=== PATIENT | female | born 1950 | race Caucasian/White ===

== ENCOUNTER 2020-10-22 09:59 | Outpatient (CLI) | payer MEDICARE, SELFPAY ==
--- NOTE | 2020-10-22 11:30 | NEURO_ITS ---
Impression: # Complains of pain and numbness of right hand. # Bilateral Carpal Tunnel Syndrome, right more than left. # No ulnar neuropathy. # Needle/EMG exam is abnormal in right APB. Nerve Conduction Studies Anti Sensory Summary Table Stim Site NR Peak (ms) P-T Amp (?V) Site1 Site2 Delta-P (ms) Dist (cm) Julio (m/s) Left Median Anti Sensory (2-3nd Digit) Wrist 4.2 21.0 Wrist 2-3nd Digit 4.2 14.0 33 Wrist 4.0 31.7 Wrist 2-3nd Digit 4.2 14.0 33 Right Median Anti Sensory (2-3nd Digit) Wrist 5.5 5.4 Wrist 2-3nd Digit 5.5 14.0 25 Wrist 6.8 16.5 Wrist 2-3nd Digit 5.5 14.0 25 Left Radial Anti Sensory (Base 1st Digit) Wrist 1.9 15.5 Wrist Base 1st Digit 1.9 0.0 Right Radial Anti Sensory (Base 1st Digit) Wrist 2.6 24.4 Wrist Base 1st Digit 2.6 0.0 Left Ulnar Anti Sensory (5th Digit) Wrist 2.6 42.1 Wrist 5th Digit 2.6 14.0 54 Right Ulnar Anti Sensory (5th Digit) Wrist 2.8 55.2 Wrist 5th Digit 2.8 14.0 50 Motor Summary Table Stim Site NR Onset (ms) O-P Amp (mV) Site1 Site2 Delta-0 (ms) Dist (cm) Julio (m/s) Left Median Motor (Abd Poll Brev) Wrist 4.2 4.7 Elbow Wrist 4.5 26.0 58 Elbow 8.7 4.1 Right Median Motor (Abd Poll Brev) Wrist 4.1 1.3 Elbow Wrist 4.5 26.0 58 Elbow 8.6 0.3 Left Ulnar Motor (Abd Dig Minimi) Wrist 2.5 4.8 A Elbow Wrist 5.1 29.0 57 A Elbow 7.6 4.7 Right Ulnar Motor (Abd Dig Minimi) Wrist 2.5 4.8 A Elbow Wrist 4.8 27.0 56 A Elbow 7.3 3.7 F Wave Studies NR F-Lat (ms) L-R F-Lat (ms) Left Median (Mrkrs) (Abd Poll Brev) 27.73 0.76 Right Median (Mrkrs) (Abd Poll Brev) 28.49 0.76 Left Ulnar (Mrkrs) (Abd Dig Min) 28.52 0.08 Right Ulnar (Mrkrs) (Abd Dig Min) 28.44 0.08 EMG Side Muscle Nerve Root Ins Act Fibs Amp Dur Recrt Comment Right 1stDorInt Ulnar C8-T1 Nml Nml Nml Nml Nml Right Ext Indicis Radial (Post Int) C7-8 Nml Nml Nml Nml Nml Right Ext Digitorum Radial (Post Int) C7-8 Nml Nml Nml Nml Nml Right BrachioRad Radial C5-6 Nml Nml Nml Nml Nml Right PronatorTeres Median C6-7 Nml Nml Nml Nml Nml Right Abd Poll Brev Median C8-T1 Nml Nml Decr >12ms Reduced Left 1stDorInt Ulnar C8-T1 Nml Nml Nml Nml Nml Left Ext Indicis Radial (Post Int) C7-8 Nml Nml Nml Nml Nml Left Ext Digitorum Radial (Post Int) C7-8 Nml Nml Nml Nml Nml Left BrachioRad Radial C5-6 Nml Nml Nml Nml Nml Left PronatorTeres Median C6-7 Nml Nml Nml Nml Nml Left Abd Poll Brev Median C8-T1 Nml Nml Nml Nml Nml Right ABD Dig Min Ulnar C8-T1 Nml Nml Nml Nml Nml Right Anconeus Radial C7-8 Nml Nml Nml Nml Nml Right Brachialis Musculocut C5-6 Nml Nml Nml Nml Nml Left ABD Dig Min Ulnar C8-T1 Nml Nml Nml Nml Nml Left Anconeus Radial C7-8 Nml Nml Nml Nml Nml Left Brachialis Musculocut C5-6 Nml Nml Nml Nml Nml MTDD
== END 2020-10-22 10:00 | disposition home or self-care (01) ==
PROVIDERS: PCP Physician Assistant; Visit Provider Physician Assistant
DX: G56.03 Carpal tunnel syndrome, bilateral upper limbs (principal)
CPT/HCPCS: 95886; 95911

== ENCOUNTER 2021-03-17 10:23 | Outpatient (CLI) | payer MEDICARE, SELFPAY ==
--- NOTE | ~2021-03-17 | US_ITS ---
EXAMINATION: US venous doppler LE RT DATE: 03/17/2021 11:01 INDICATION: Right lower limb pain. TECHNIQUE: Grayscale ultrasound images without and with compression and Doppler ultrasound images of the right lower extremity veins were obtained. COMPARISON: None. FINDINGS: The visualized portions of right common femoral vein, profunda (deep) femoral vein, femoral vein, pop liteal vein, peroneal trunk, posterior tibial veins, peroneal veins, gastrocnemius vein and greater s aphenous vein outflow are patent. 2.4 x 1.1 x 1.0 cm Joel cyst at the medial popliteal fossa. IMPRESSION: 1. No deep venous thrombosis in the right lower limb. 2. Small Joel's cyst. Reviewed, dictated and finalized at location A.
== END 2021-03-17 10:24 | disposition home or self-care (01) ==
PROVIDERS: PCP Physician Assistant; Visit Provider Physician Assistant
DX: M79.604 Pain in right leg (principal); M71.21 Synovial cyst of popliteal space [Baker], right knee
CPT/HCPCS: 93971

== ENCOUNTER 2021-12-29 08:07 | Outpatient (CLI) | payer MEDICARE, SELFPAY ==
--- NOTE | ~2021-12-29 | US_ITS ---
EXAMINATION: US arterial ankle brachial ind DATE: 12/29/2021 08:50 INDICATION: Right lower limb pain TECHNIQUE: Segmental pressures and plethysmographic and Doppler waveforms of the brachial and lower e xtremity arteries were obtained. COMPARISON: None. FINDINGS: Right and left brachial artery pressures of 135 mm Hg and 134 mm Hg, respectively, are concordant (no rmal difference <= 30 mmHg). The right ankle-brachial index (JOHN) is 1.44 (normal >= 0.9-1.0). The right great toe-brachial index (TBI) is 1.01 (normal >= 0.65). Arterial Doppler waveforms are biphasic with brisk systolic upstrokes at the right posterior tibial and dorsalis pedis arteries. The left JOHN is 1.44. The left TBI is 1.04. Arterial Doppler waveforms are biphasic with brisk systol ic upstrokes at both the left posterior tibial and dorsalis pedis arteries. IMPRESSION: 1. No significant arterial occlusive disease to either lower limb with normal bilateral ABIs and TBI' s. Reviewed, dictated and finalized at location A. MAN IMPRESSION: 1. No significant arterial occlusive disease to either lower limb with normal b ilateral ABIs and TBI's.
== END 2021-12-29 08:08 | disposition home or self-care (01) ==
LOC: ANHIMG 08:12
PROVIDERS: PCP Physician Assistant; Visit Provider Physician Assistant
DX: M79.604 Pain in right leg (principal); M79.605 Pain in left leg; M79.89 Other specified soft tissue disorders
CPT/HCPCS: 93922

== ENCOUNTER 2022-12-08 12:49 | Emergency (ER) | payer MEDICARE, SELFPAY ==
[2022-12-08] VITALS (21 sets, daily range): BP systolic 103–172; BP diastolic 69–94; PULSE 68–105; RESP 12–20; TEMP 36.3; O2SAT 92–98
--- NOTE | ~2022-12-08 | CT_ITS ---
EXAMINATION: CT abdomen pelvis w con DATE: 12/08/2022 14:37 INDICATION: Abdomen pain. TECHNIQUE: Computed tomography (CT) of the abdomen and pelvis was performed with 100 cc Omnipaque 350 intravenous contrast. The dose-length product was 852.04 mGy-cm. Automated exposure control and iter ative reconstruction technique were employed. COMPARISON: None. FINDINGS: There is dependent atelectasis. Heart size normal. No significant pleural or pericardial ef fusion. The liver, spleen, pancreas, adrenal glands and kidneys are unremarkable. There are gallstones. No hy dronephrosis. Nonobstructive bowel pattern. There is a simple left adnexal cyst measuring 6.6 x 6.5 x 6 cm. No free fluid or free air. No significant vascular abnormality. Severe lumbar spondylosis with grade 2 spondylolisthesis at L4-5. Severe osteoarthritis of the right hip. IMPRESSION: 1. Left adnexal cyst measuring up to 6.6 cm, likely ovarian. Differential diagnosis includes simple o varian cyst, cystadenoma and cystadenocarcinoma. Recommend correlation with MRI with contrast. 2: Cholelithiasis. Reviewed, dictated and finalized at location A. INE BOOKKEEPER IMPRESSION: 1. Left adnexal cyst measuring up to 6.6 cm, likely ovarian. Differential diagn osis includes simple ovarian cyst, cystadenoma and cystadenocarcinoma. Recommen d correlation with MRI with contrast. 2: Cholelithiasis.
--- NOTE | 2022-12-08 13:27 | ED.ABDPAIN ---
HPI - Abdominal Pain General Chief Complaint: Abdominal Pain Stated Complaint: N/V, abd pain Time Seen by Provider: 12/08/22 13:05 Source: patient, family and RN notes reviewed History of Present Illness HPI narrative: Patient presents emergency department from home for nausea vomiting diarrhea. Patient states the symptoms began last night states she has had numerous episodes of nausea and vomiting as well as diarrhea. She states she has been unable to keep anything down patient states has been associated with abdominal pain described as diffuse and aching in nature. She denies any fevers or chills she denies any chest pain shortness of breath coughing or any other symptoms Related Data Allergies Allergy/AdvReac Type Severity Reaction Status Date / Time No Known Allergies Allergy Verified 10/06/20 11:06 Review of Systems Review of Systems: Gen.: Denies fevers or chills ENT: Denies congestion Respiratory: Denies shortness of breath or cough CV: Denies chest pain or palpitations GI: See HPI Musculoskeletal: Denies back pain or muscle pain Neuro: Denies numbness, tingling, weakness or focal weakness Skin: Denies rash Except as documented, all other systems reviewed and negative [facility] Past Medical History Medical History Arthritis Inflammatory arthritis Knowledge deficit on leg surgery Surgical History Surgical History H/O brain surgery H/O skin graft History of hip surgery History of surgery on arm Social History Social History Smoking status: Never smoker Alcohol intake: current Substance use: never Exam Narrative: APPEARANCE: No acute distress, nontoxic, resting in bed HEENT: Normocephalic, atraumatic, OMM RESPIRATORY: No respiratory distress, clear to auscultation bilaterally with no rhonchi wheezing or rales CARDIOVASCULAR: RRR s murmur ABDOMINAL: Soft nondistended diffusely tender to palpation no rebound or guard MUSCULOSKELETAl: Moves all extremities. No clubbing, cyanosis or edema. NEURO: Awake and alert. Following commands, speech normal, no focal deficits SKIN:: Warm, dry. Normal Color PSYCHIATRIC: Normal affect/mood Course Course Emergency Course: Called and discussed with ARNOLD Borges patient CT results. Discussed need for follow-up MRI will follow as an outpatient Patient able to eat and drink in ED with no emesis Patient states that they are feeling much better at this time. States abdominal pain has resolved. Repeat abdominal exam shows the patient's abdomen to be soft and nontender. Discussed with patient results of workup and diagnosis. Discussed need for follow-up with primary care physician, reasons to return to the emergency department in proper use of medication. Patient understands and agrees to current treatment plan I discussed with patient her CT scan showing ovarian cyst and need for outpatient imaging for further evaluation to rule out mass Vital Signs Vital signs: Vital Signs Temperature 97.4 F L 12/08/22 13:01 Pulse Rate 101 H 12/08/22 13:01 Respiratory Rate 18 12/08/22 13:01 Blood Pressure 103/78 12/08/22 13:01 Pulse Oximetry 96 12/08/22 13:01 Oxygen Delivery Room Air 12/08/22 13:01 Temperature 97.4 F L 12/08/22 13:01 Pulse Rate 76 12/08/22 16:16 Respiratory Rate 17 12/08/22 16:16 Blood Pressure 146/74 H 12/08/22 16:16 Pulse Oximetry 98 12/08/22 16:16 Oxygen Delivery Room Air 12/08/22 13:01 MDM - Abdominal Pain MDM Narrative Medical decision making narrative: Patient's abdomen is soft without significant pain or signs of surgical abdomen on serial exams. Lab and x-ray evaluations are reviewed and patient is felt to be a reasonable candidate for outpatient management. Patient was instructed as to limitations of x-ray and laboratory evaluation and encouraged to retur
[2022-12-08] MEDS: SODIUM CHLORIDE 0.9% IV 1,000 ML 999 ML IV CONT (13:35)
[2022-12-08] MEDS: FAMOTIDINE 20 MG/2 ML VIAL IV PUSH (13:36)
[2022-12-08] MEDS: ONDANSETRON INJ 4 MG/2 ML VIAL IV PUSH (13:36)
[2022-12-08 13:49] LABS: Basophils Percent Auto 0.2 % (0.2-1.2); Eosinophils Percent Auto 0.1 % (0-4.4); Hematocrit 45.9 % (37.0-47.0); Hemoglobin 14.6 g/dL (12.0-15.0); Immature Granulocyte Absolute 0.03 K/mm3 (0.00-0.031); Immature Granulocyte Percent A 0.3 % (0-0.5); Lymphocytes Absolute Auto 0.25 K/mm3 (0.9-3.2); Lymphocytes Percent Auto 2.6 % (18.3-44.2); Mean Corpuscular HGB Conc 31.8 g/dl (32-36); Mean Corpuscular Volume 94.3 fl (80-100); Mean Platelet Volume 9.6 fl (7.4-10.4); Monocytes Absolute Auto 0.3 K/mm3 (0.1-0.6); Neutrophils Absolute Auto 9.2 K/mm3 (1.3-6.7); Neutrophils Percent Auto 93.8 % (45.5-73.1); Platelet Count Result 304 k/mm3 (150-375); Red Blood Count 4.87 M/mm3 (4.2-5.4); Red Cell Distribution Width 13.2 % (11.5-14.5); White Blood Count 9.8 K/mm3 (4.5-10.0)
[2022-12-08 14:01] LABS: Alanine Aminotransferase 19 U/L (6-35); Albumin Level 4.4 g/dL (3.5-5.1); Alkaline Phosphatase 64 U/L (38-126); Anion Gap 8 mmol/L (8-16); Aspartate Amino Transferase 24 U/L (14-36); Bilirubin,Total 0.9 mg/dL (0.2-1.3); Blood Urea Nitrogen 39 mg/dL (7-17); Calcium 9.1 mg/dL (8.4-10.2); Carbon Dioxide 23 mmol/L (22-30); Chloride 110 mmol/L (98-107); Estimated CRCL calculation 59 ml/min; Estimated Glomerular Filt Rate > 60; Glucose 138 mg/dL (65-110); Lipase 92 U/L (23-300); Potassium 3.9 mmol/L (3.4-5.0); Sodium 141 mmol/L (137-145)
[2022-12-08 14:59] LABS: Influenza A QL RT-PCR Negative (Negative); Influenza B QL RT-PCR Negative (Negative); SARS-CoV-2 RNA PCR Negative
[2022-12-08 15:50] LABS: Appearance Urine Clear (Clear); Bilirubin Urine Negative (Negative); Blood Urine Negative (Negative); Color Urine Yellow (Yellow); Glucose Urine UA Negative (Negative); Ketones Urine Negative (Negative); Leukocyte Esterase Ur Negative LEU/UL (Negative); Nitrate Urine Negative (Negative); Protein Urine Trace mg/dL (Negative); Specific Grav Ur <= 1.005 (1.001-1.035); Urobilinogen Urine 0.2 mg/dL (<2.0); pH Urine 5.5 (5.0-9.0)
[2022-12-08 15:56] LABS: Bacteria Urine Trace /hpf; Mucus Urine Moderate /lpf; Squamous Epithelial Cell Urine Rare /hpf (Few); WBC Urine 0-3 /hpf
[2022-12-08 16:33] LABS: Add Urine Microscopic? YES
== END 2022-12-08 16:52 | disposition home or self-care (01) ==
PROVIDERS: Emergency Provider Emergency Medicine; PCP Physician Assistant
DX: R11.2 Nausea with vomiting, unspecified (principal); N83.202 Unspecified ovarian cyst, left side; Z20.822 Contact with and (suspected) exposure to COVID-19; M19.90 Unspecified osteoarthritis, unspecified site; K80.20 Calculus of gallbladder without cholecystitis without obstruction
CPT/HCPCS: 36415; 74177; 80053; 81001; 83690; 85025; 87636; 96361; 96365; 96375; 99284; J0131; J2405; J7030; Q9967

== ENCOUNTER 2024-02-02 10:48 | Outpatient (CLI) | payer MEDICARE, SELFPAY ==
--- NOTE | ~2024-02-02 | CT_ITS ---
Noncontrast CT scan of the pelvis and right hip CLINICAL HISTORY: History of fracture TECHNIQUE: Axial noncontrast imaging of the pelvis and right hip was performed. Sagittal and coronal reformatted images were constructed. Dose reduction technique was used on this scan by utilizing auto mated exposure control and iterative reconstruction technique. The dose-length product (DLP) was 520. 57 mGy-cm. Findings: No acute fracture or dislocation seen. There is severe osteoarthritis of the right hip join t. There is remodeling and irregularity of the articular surface of the femoral head with severe join t space narrowing, [id number] appearance, with reactive sclerotic and subchondral cystic change. Th ere is osteophyte formation at the femoral head neck junctions. There is minimal degenerative change of the left hip joint. SI joints appear intact. Calcified gallstone incidentally noted. Visualized bowel loops are unremarkable. No ascites. Urinary bladder unremarkable. There is a 6.9 x 4.8 cm probable left ovarian cyst. No ascites. No lymphadenopa thy evident. No joint effusion evident. IMPRESSION: No acute fracture or dislocation. Severe osteoarthritis of the right hip joint, as detailed above. 6.9 x 4.8 cm left ovarian/left adnexal cyst, stable since 12/08/2022. Cholelithiasis. Reviewed, dictated and finalized at location . IMPRESSION: No acute fracture or dislocation. Severe osteoarthritis of the right hip joint, as detailed above. 6.9 x 4.8 cm left ovarian/left adnexal cyst, stable since 12/08/2022. Cholelithiasis.
== END 2024-02-02 10:49 | disposition home or self-care (01) ==
LOC: ANHIMG 10:50
PROVIDERS: PCP Physician Assistant; Visit Provider Physician Assistant
DX: Z87.81 Personal history of (healed) traumatic fracture (principal)
CPT/HCPCS: 72192; 73700

== ENCOUNTER 2024-02-20 08:45 | Outpatient (CLI) | payer MEDICARE, SELFPAY ==
--- NOTE | 2024-02-20 | EST_ITS ---
Patient Info Name: Cindy Meade Age: 73 years : 1950 Gender: Female Ht: 62 in Wt: 140 lbs BSA: 1.68 m2 HR: 58 bpm BP: 161 / 105 mmHg Heart Rhythm: Sinus Rhythm Exam Date: 02/20/2024 10:20 AM Exam Location: Echo Lab Patient Status: Outpatient Admit Date: 02/20/2024 Staff Ordering Physician: Wellington, Sylwia ANDERSON Attending Provider: Wellington, Sylwia ANDERSON Exercise Technologist: Nessa Dempsey, CT Nurse: Lety Sales APN Exam Type: CA stress ciarra w NM Study Info Indications R07.89 - Other chest pain A regadenoson stress test was performed. Summary 1. No abnormal ST/T wave changes diagnostic of ischemia with Lexiscan. 2. Please correlate with nuclear medicine images, reported separately. 3. Stress test supervised by Lety Sales NP. Stress test interpreted by Deanne Way MD. Protocol: Lexiscan Stress ECG Details Stage: REST Duration (min): 1 min : 43 sec HR (bpm): 58 SBP (mmHg): 142 DBP (mmHg): 85 Stage: REST Duration (min): 2 min : 2 sec HR (bpm): 57 SBP (mmHg): 142 DBP (mmHg): 85 Stage: REST Duration (min): 6 min : 58 sec HR (bpm): 65 SBP (mmHg): 142 DBP (mmHg): 85 Stage: STAGE 1 Duration (min): 1 min : 0 sec HR (bpm): 85 SBP (mmHg): 161 DBP (mmHg): 105 Stage: RECOVERY Duration (min): 1 min : 0 sec HR (bpm): 84 SBP (mmHg): 161 DBP (mmHg): 105 Stage: RECOVERY Duration (min): 2 min : 0 sec HR (bpm): 82 SBP (mmHg): 161 DBP (mmHg): 105 Stage: RECOVERY Duration (min): 3 min : 0 sec HR (bpm): 75 SBP (mmHg): 161 DBP (mmHg): 105 Stage: RECOVERY Duration (min): 3 min : 24 sec HR (bpm): 77 SBP (mmHg): 170 DBP (mmHg): 99 Rest HR: 65 bpm Peak HR: 93 bpm Rest Sys BP: 142 mmHg Peak Sys BP: 170 mmHg Max Pred HR: 149 bpm % Max Pred HR: 62 % Target HR: 127 bpm Max RPP: 15,810 bpm*mmHg Total Time: 1 min : 0 sec Rest Shaffer BP: 85 mmHg Peak Shaffer BP: 99 mmHg Total Dose: 0.4 mg Resting ECG Sinus bradycardia. Stress ECG Sinus rhythm. No abnormal ST/T wave changes diagnostic of ischemia with Lexiscan. Arrhythmias None. Report Signatures
--- NOTE | ~2024-02-20 | NM_ITS ---
EXAMINATION: NM ciarra stress w perfusion DATE: 02/20/2024 11:29 INDICATION: Chest pain TECHNIQUE: Rest images were obtained following intravenous administration of 9.9 mCi Tc99m tetrofosmi n (Myoview). The patient was infused intravenously with Lexiscan (Regadenoson). Then, 31.1 mCi Tc99m tetrofosmin (Myoview) was administered intravenously, and stress images were obtained. Data was recon structed into short axis and horizontal and vertical long axis SPECT images. Gated SPECT images were also obtained. COMPARISON: None. FINDINGS: There is no definite reversible or fixed perfusion abnormality to suggest ischemia or infar ction. There is normal left ventricular chamber size, wall motion and ejection fraction. Left ventr icular ejection fraction measures >70%. IMPRESSION: 1. Normal myocardial perfusion at rest and during stress. 2. Left ventricular ejection fraction measuring >70%. Reviewed, dictated and finalized at location B.
== END 2024-02-20 08:46 | disposition home or self-care (01) ==
PROVIDERS: PCP Physician Assistant; Visit Provider Physician Assistant
DX: R07.9 Chest pain, unspecified (principal)
CPT/HCPCS: 78452; 93017; A9502; J2785

== ENCOUNTER 2024-03-20 10:15 | Outpatient (CLI) | payer MEDICARE, SELFPAY ==
--- NOTE | ~2024-03-20 | US_ITS ---
EXAMINATION: US pelvic complete DATE: 03/20/2024 10:53 INDICATION: Unspecified ovarian cyst, left side. TECHNIQUE: Multiple transabdominal sonographic images of the pelvis were obtained. COMPARISON: Pelvis CT 02/02/2024, 12/08/2022 FINDINGS: The uterus measures 6.8 x 2.7 x 4.9 cm. There is no free fluid in the pelvis. The endometrial complex measures 7 mm in thickness. The right ovary measures 3.2 x 1.6 x 2.7 cm. The left ovary measures 5.4 x 6.1 x 8.7 cm. There is a 7.6 x 5.0 x 4.1 cm cyst in the left ovary. There is normal vascular flow in the ovaries. IMPRESSION: 1. 7.6 cm cyst in left ovary, stable from 12/08/2022, likely benign. Pelvis MRI without and with contr ast or surgical evaluation is recommended. Reviewed, dictated and finalized at location A. IMPRESSION: 1. 7.6 cm cyst in left ovary, stable from 12/08/2022, likely benign. Pelvis MRI without and with contrast or surgical evaluation is recommended.
== END 2024-03-20 10:16 | disposition home or self-care (01) ==
PROVIDERS: PCP Physician Assistant; Visit Provider Obstetrics & Gynecology
DX: N83.202 Unspecified ovarian cyst, left side (principal); R93.89 Abnormal findings on diagnostic imaging of other specified body structures
CPT/HCPCS: 76856

== ENCOUNTER 2024-06-21 13:20 | Outpatient (CLI) | payer MEDICARE, SELFPAY ==
--- NOTE | ~2024-06-21 | DEXA_ITS ---
Bone Density Report Name: STEVEN THOMPSON Age: 74 Sex: Female Ethnicity: White Date of : 1950 Indication: postmenopausal; screening for osteoporosis; height loss; history of glucocorticoids; prior fracture; Referring Provider: DONAVON, MICKEY Study: Bone densitometry was performed. Exam Date: June 21, 2024 Accession number: [id number] Bone Density: Region BMD T-score Z-score Classification AP Spine(L1-L4) 1.021 -0.2 2.0 Normal Femoral Neck (Left) 0.664 -1.7 0.3 Osteopenia Total Hip (Left) 0.868 -0.6 1.0 Normal Femoral Neck (Right) 0.648 -1.8 0.1 Osteopenia Total Hip (Right) 0.809 -1.1 0.5 Osteopenia Total Hip Mean 0.838 -0.9 0.8 Normal World Health Organization criteria for BMD impression classify patients as: Normal (T-score at or above -1.0), Osteopenia (T-score between -1.0 and -2.5), or Osteoporosis (T-score at or below -2.5). 10-year Fracture Risk: FRAX not reported because: Prior hip or vertebral fracture Clinical Information Provided by Patient: Have had a previous hip or vertebral fracture Has had a low trauma fracture Has taken Glucocorticoids Has used the following medications: Vitamin D, Calcium Patient maximum height was 62 Menopause Age: 46 No regular weight bearing exercise Drinks caffeinated beverages Onset of menses at age 15 Number of children 2 Impression: The patient has low bone mass, based on the Right Femoral Neck T-score. The patient has risk factors, including: previous fracture, history of glucocorticoid therapy. Discussion: INCREASED RISK OF FRACTURE DUE TO HISTORY OF FRACTURE. The patient's previous fracture puts the patient at high risk of a future fracture. In untreated patients, the risk of osteoporotic fracture increases approximately two-fold for each 1.0 SD decrease in T-score. Low bone density is not the only risk factor for fracture; also consider factors such as patient's age, frailty or poor health, risk of falling, risk of injury, previous osteoporotic fracture, family history of osteoporosis, cigarette smoking, low body weight, etc. Not everyone with a low trauma fracture has osteoporosis; osteomalacia and other metabolic bone disorders should also be considered. Patients who have osteoporosis should be evaluated for specific diseases and conditions (secondary causes) that may cause or contribute to bone loss and fracture risk. National Osteoporosis Foundation (NOF) recommends pharmacologic intervention for patients with a prior hip or vertebral fracture regardless of BMD T-score. The patient should follow a healthful lifestyle (good nutrition with adequate calcium and vitamin D, and appropriate weight-bearing exercise). Follow-Up: Consider a repeat BMD and Vertebral Fracture Assessment (VFA) exam in 2 years or sooner if medically necessary,
--- NOTE | ~2024-06-21 | MM_ITS ---
EXAMINATION: MM screening barney BI w nunu HISTORY: Screening TECHNIQUE: Craniocaudal and mediolateral oblique 3-D tomosynthesis images were obtained and synthetic 2-D images were generated. CAD analysis was submitted and interpreted. COMPARISON: No prior mammogram is available for comparison at this institution. BREAST PARENCHYMAL COMPOSITION: Not dense: There are scattered areas of fibroglandular density. FINDINGS: There is no evidence of suspicious mass, calcification, or architectural distortion to sugg est malignancy in either breast. There has been no suspicious interval change. IMPRESSION: 1. No mammographic evidence of malignancy. 2. Recommend routine screening mammography in one year. BI-RADS Category 1: Negative Reviewed, dictated and finalized at location B.
== END 2024-06-21 13:21 | disposition home or self-care (01) ==
LOC: ANHIMG 13:23
PROVIDERS: PCP Physician Assistant; Visit Provider Physician Assistant
DX: Z12.31 Encounter for screening mammogram for malignant neoplasm of breast (principal); Z78.0 Asymptomatic menopausal state; M85.852 Other specified disorders of bone density and structure, left thigh; M85.851 Other specified disorders of bone density and structure, right thigh
CPT/HCPCS: 77063; 77067; 77080

== ENCOUNTER 2025-02-25 10:48 | Outpatient (CLI) | payer MEDICARE, SELFPAY ==
--- NOTE | ~2025-02-25 | XR_ITS ---
Cervical Spine: AP, lateral, open-mouth views Clinical History: Pain Findings: There is reversal of the normal cervical lordosis. There is 6 mm anterolisthesis of C4 over C5. There is 5 mm anterolisthesis of C3 over C4. There is advanced degenerative disc narrowing at C3 -C4, C4-C5, C5-C6, C6-C7. Moderate to advanced facet arthropathy present. Pre-vertebral soft tissues are unremarkable. Impression: Advanced spondylosis with reversal of the normal cervical lordosis. 6 mm anterolisthesis of C4-C5. 5 mm anterolisthesis of C3 over C4. Reviewed, dictated and finalized at [facility]. Impression: Advanced spondylosis with reversal of the normal cervical lordosis. 6 mm anterolisthesis of C4-C5. 5 mm anterolisthesis of C3 over C4.
--- NOTE | ~2025-02-25 | XR_ITS ---
Left Shoulder Technique: AP and scapular Y views were obtained. Clinical History: Pain Findings: No fracture or dislocation is seen. Osseous alignment is anatomic. The glenohumeral joint i s intact. There is [id number] AC joint degenerative change. Soft tissues are unremarkable. Impression: AC joint degenerative change, as above. Reviewed, dictated and finalized at location M. Impression: AC joint degenerative change, as above.
== END 2025-02-25 10:49 | disposition home or self-care (01) ==
PROVIDERS: PCP Physician Assistant; Visit Provider Physician Assistant
DX: M47.892 Other spondylosis, cervical region (principal); M43.12 Spondylolisthesis, cervical region; M43.8X2 Other specified deforming dorsopathies, cervical region; M19.012 Primary osteoarthritis, left shoulder
CPT/HCPCS: 72040; 73030

== ENCOUNTER 2025-07-29 15:58 | Outpatient (CLI) | payer MEDICARE, SELFPAY ==
--- NOTE | ~2025-07-29 | MM_ITS ---
EXAMINATION: [facility] HISTORY: Screening TECHNIQUE: Craniocaudal and mediolateral oblique 3-D tomosynthesis images were obtained and synthetic 2-D images were generated. CAD analysis was submitted and interpreted. COMPARISON: 06/21/2024 BREAST PARENCHYMAL COMPOSITION: Not Dense: The breasts are almost entirely fatty. FINDINGS: There is no evidence of suspicious mass, calcification, or architectural distortion to suggest malignancy in either breast. [There has been no significant interval change. IMPRESSION: 1. No mammographic evidence of malignancy. Recommend routine screening mammography in one year. BI-RADS Category 1: Negative Reviewed, dictated, and finalized at Location A. Reviewed, dictated and finalized at location Q. IMPRESSION: 1. No mammographic evidence of malignancy. Recommend routine screening mammogra phy in one year. BI-RADS Category 1: Negative
--- OUTSIDE RECORDS SUMMARY | 2025-07-29 16:52 | XMS_ITS | Clinical Summary ---
Author Organization [facility] Address [facility] [place] [address] Care Team Providers Care Enterprise Services Manager Name Role Phone Sylwia Paris Unavailable Sylwia Paris Primary Care Pr ovider Allergies No known active allergies Medications levothyroxine (SYNTHROID) 100 mcg tablet 01/01/2020 Active sulfamethoxazole-t rimethoprim (BACTRIM DS) 800-160 mg per tablet 12/25/2019 Active Active Problems No known active problems Surgical History Surgery Date Site/Laterality Comments KNEE ARTHROSCOPY Medical History Medical History Date Comments Thyroid disease Social History Tobacco Use Types Packs/Day Years Used Date Smoking Tobacco: Never Smokeless Tobacco: Never Personal Safety Answer Date Recorded Getting School Help Needed Not on file 01/27 Comments Unknown Sex and Gender Information Value Date Recorded Sex Assigned at Not on file 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 Gender Identity Not on file Sexual Orientation Not on file Occupation Industry Job Start Date Job End Date RETIRED Not on file Not on file Not on file Obstetrics History Last Filed Vital Signs Vital Sign Reading Time Taken Comments Blood Pressure - - Pulse - - Temperature - - Respiratory Rate - - Oxygen Saturation - - Inhaled Oxygen Concentration - - Weight - - Height 157.5 cm (5' 2) 01/14/2020 12:03 PM DOCUMENT REVIEWER Body Mass Index - - Plan of Treatment Not on file Insurance [employer] CHOICE MEDICARE PPO Care Teams Enterprise Services Manager Relationship Specialty Start Date End Date Sylwia Paris PA PCP - General Physician Printing Film Stripper 07/12/23 Sylwia Paris PA Physician Printing Film Stripper 01/27/20
--- OUTSIDE RECORDS SUMMARY | 2025-07-29 16:52 | XMS_ITS | Clinical Summary ---
Author Organization 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 Gender Identity Not on file Sexual Orientation Not on file Plan of Treatment Health Maintenance Due Date Last Done Comments Colorectal Cancer Screening Colonoscopy (10 Years) 1950 Hepatitis C 1970 DTaP, Tdap and Td Vaccines (1 - Tdap) 1971 Mammogram Screening 1992 Zoster Vaccines (1 of 2) 2002 Annual Medicare Wellness Visit 2017 Dexa Scan (General) 2017 COVID-19 Vaccine ( season) 2025 08/01/2022, 04/25/2022, 09/14/2021, Additional history exists RSV Immunization or 60+ Years (1 - 1-dose 75+ series) 2027 Pneumococcal Vaccine: 50+ Years Completed 08/13/2020, 07/31/2018 Meningococcal B Vaccine Aged Out No l onger eligible based on patient's age to complete this topic Meningococcal Vaccine Aged Out No yulisa darek eligible based on patient's age to complete this topic RSV Immunizations Under 20 Months Aged Out No longer eligible based on patient's age to complete this topic Insurance [employer] Care Teams Converter Supervisor Relationship Specialty Start Date End Date Sylwia Paris PA PCP - General PHYSICIAN PAID SEARCH MARKETING ANALYST 01/11/23
--- OUTSIDE RECORDS SUMMARY | 2025-07-29 16:52 | XMS_ITS | Clinical Summary ---
Author Organization [facility] Address [address] [place] [address] Care Team Providers Care Power Grader Operator Name Role Phone Sylwia Gomez Primary Care Pr ovider Source Comments [facility],non-owned Affiliates and Associated Physician Practices is amultiple site organization consisting of ambulatory clinics and hospital sitesin [place], [place], [place] and [place]. This disclosure is being madepursuant to the Care Everywhere program and may not contain all information available regarding this patient. Last updated 18.[facility] [employer] Allergies No known active allergies Medications * Be aware that medications may not be up to date on this document. Alwaysverify current medications with the patient. levothyroxine (SYNTHROID) 100 MCG tablet levothyroxine 100 mcg tablet 0 Active Active Problems No known active problems Immunizations Immunization Administration Dates Next Due INFLUENZA VACCINE, HIGH-DOSE , QUADR. (FLUZONE HIGH-DOSE QUADRIVALENT; 65Y+), 0.7 ML (HD-[id number]) 08/13/2020,08/02/2019 Social History Tobacco Use Types Packs/Day Years Used Date Smoking Tobacco: Never Smokeless Tobacco: Never Comments Unknown Sex and Gender Information Value Date Recorded Sex Assigned at Not on file Legal Sex Female 11:26 AM CDT Gender Identity Not on file Sexual Orientation Not on file Last Filed Vital Signs Vital Sign Reading Time Taken Comments Blood Pressure - - Pulse - - Temperature - - Respiratory Rate - - Oxygen Saturation - - Inhaled Oxygen Concentration - - Weight 61.2 kg (135 lb) 01/21/2020 10:04 AM CDT Height 157.5 cm (5' 2) 01/21/2020 10:04 AM CDT Body Mass Index 24.69 01/21/2020 10:04 AM CDT Plan of Treatment Health Maintenance Due Date Last Done Comments BONE DENSITY TESTING 1952 COLOGUARD (AGES 45-75) - COL ON CA SCREENING 1952 COLON MONITORING 1952 COLONOSCOPY - COLON CA SCREENING 1952 CT COLONOGRAPHY - COLON CA SCREENING 1952 Colorectal Cancer Screening 1952 FIT - COLON CA SCREENING 1952 FLEX SIG - COLON CA SCREENING 1952 LIPID TESTING 1952 MAMMOGRAM 1952 HEPATITIS C SCREENING 04/08/1970 DTAP/TDAP/TD VACCINES (1 - Tdap) 1971 PNEUMOCOCCAL VACCINE 50+ (1 of 1 - PCV) 2002 ZOSTER VACCINE (1 of 2) 2002 DEPRESSION SCREENING 11/13/2024 COVID-19 VACCINE (1 - 2023-2 5 season) 2025 INFLUENZA VACCINE (#1) 2025 0, 08/02/2019, 08/01/2018 Respiratory Syncytial Virus (RSV) Vaccine Pt: or over 60 yrs (1 - 1-dose 75+ series) 2027 HEPATITIS B VACCINE Aged Out No longe r eligible based on patient's age to complete this topic HIB VACCINE Aged Out No longer eligi ble based on patient's age to complete this topic HPV VACCINE Aged Out No longer eligi ble based on patient's age to complete this topic MENINGOCOCCAL (Group B) VACCINE SHARED DECISION-MAKING Aged Out No longer eligible based on patient's age to complete this topic MENINGOCOCCAL GROUPS A/C/Y/W VACCINE Aged Out No longer eligible b ased on patient's age to complete this topic Insurance [facility]IC[facility] Care Teams Power Grader Operator Relationship Specialty Start Date End Date Sylwia Gomez PA [address] [place] [id number] PCP - General Physician Tile Grader 01/17/20
== END 2025-07-29 15:59 | disposition home or self-care (01) ==
LOC: ANHFOHIMG 16:00
PROVIDERS: PCP Physician Assistant; Visit Provider Physician Assistant
DX: Z12.31 Encounter for screening mammogram for malignant neoplasm of breast (principal)
CPT/HCPCS: 77063; 77067